=== PATIENT | female | born 1990 | race Caucasian/White ===

== ENCOUNTER → 2021-07-18 | Day surgery (SDC) | payer OTHER ==
[~2021-07-18] MED LIST: ASPIRIN81 MG PO; PRENATAL VITAM1 EAC5 PO; PRILOSEC OTC20 MG PO
[2021-07-18 13:09] LABS: HEMOGLOBIN 13.7 gm/dl (12.3-15.3); RED BLOOD COUNT 4.91 M/UL (4.00-5.10); WHITE BLOOD COUNT 5.3 K/UL (4.5-11.0)
== END | disposition home or self-care (01) ==
LOC: OR 12:25
PROVIDERS: Obstetrics & Gynecology
DX: O03.4 Incomplete spontaneous abortion without complication (principal); O09.899 Supervision of other high risk pregnancies, unspecified trimester; Z20.822 Contact with and (suspected) exposure to COVID-19
CPT/HCPCS: 36415; 85025; J2250; J2795; J3010; J7030; J7120; U0002